=== PATIENT | male | born 1965 | race Caucasian/White ===

== ENCOUNTER 2016-12-07 13:02 | Inpatient (IN) | payer OTHER ==
--- NOTE | 2016-12-07 13:36 | EDPHY ---
H & P Time Seen by Provider: 12/07/16 13:35 HPI/ROS: Chief complaint. Fever HPI. 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 For the past 11 days he has fever, chest, body aches, chills. He has had vomiting but no diarrhea. He has a rash especially his chest. No recent travel or known exposures. He has had similar flare ups in the past. Chest pain is central chest without radiation. Slight shortness of breath and cough. No urinary symptoms. ROS Constitutional. Fever, chills, weakness Eyes. no problems with vision ENT. no sore throat, no nasal drainage Cardiovascular. Chest pain Respiratory. Shortness of breath and cough Abdominal. no abdominal pain, no nausea/vomiting, no diarrhea . no problems urinating MS. no calf pain/swelling, no neck/back pain, no joint pain Skin. Rash Lymph. no swollen glands Neuro. no headache, no dizziness, no difficulty walking or with speech Past Medical/Surgical History: Still's disease, hernia Social History: , nonsmoker, no alcohol Smoking Status: Never smoked Physical Exam: General Appearance: Alert well-developed male moderate distress vital signs show temp 39.4degrees, heart rate 116, blood pressure 147/86, pulse ox 96% on room air Eyes: Pupils equal and round no pallor or injection. ENT, Mouth: Mucous membranes are moist. Respiratory: There are no retractions, lungs are clear to auscultation. Cardiovascular: Regular rate and rhythm. Gastrointestinal: Abdomen is soft and nontender, no masses, bowel sounds normal. Neurological: Awake and alert, sensory and motor exams grossly normal. Skin: Fine erythematous rash that is macular to the anterior chest and ab Musculoskeletal: Neck is supple nontender. Extremities symmetrical, full range of motion. Psychiatric: Patient is oriented X 3, there is no agitation. Constitutional: Initial Vital Signs Temperature (C) 39.4 C H 12/07/16 13:11 Heart Rate 116 H 12/07/16 13:11 Respiratory Rate 20 12/07/16 13:11 Blood Pressure 147/86 H 12/07/16 13:11 O2 Sat (%) 96 12/07/16 13:11 O2 Delivery Mode Room Air Medical Decision Making - Diagnostics Imaging Results: Imaging Impressions Chest X-Ray 12/07/16 13:39 Impression: Diminished lung volumes with patchy bilateral lower lobe atelectasis versus pneumonia, left greater than right.. Chest x-ray interpreted by me as possible left lower lobe pneumonia Procedures: IV normal saline. Sepsis workup with blood cultures and lactate pending. Morphine for pain. ED Course/Re-evaluation: Patient is unable to sit up to let me listen to his lungs in the back Rocephin intravenously I consulted and discussed the case with Dr. Contreras, hospitalist, who agrees to the admission will see the patient in the ED Re-evaluation 3:40 p.m. patient is stable. The patient, his , and I discussed imaging and lab results. We discussed recommendation for admission and further evaluation. They expressed understanding and agreement translator interpreter is Jaden Differential Diagnosis: This could certainly be exacerbation of patient's Still's disease. I have considered pneumonia, sepsis, urinary tract infection, influenza as well - Data Points Laboratory Results: Laboratory Results 12/07/16 13:35 12/07/16 13:35 12/07/16 12/07/16 12/07/16 15:05 14:27 13:35 WBC RBC Hgb Hct MCV MCH MCHC RDW Plt Count MPV Neut % (Auto) Lymph % (Auto) Garvin % (Auto) Eos % (Auto) Baso % (Auto) Nucleat RBC Rel Count Absolute Neuts (auto) Absolute Lymphs (auto) Absolute Monos (auto) Absolute Eos (auto) Absolute Basos (auto) Absolute Nucleated RBC Immature Gran % Seg Neutrophils % Band Neutrophils % Lymphocytes % Monocytes % Immature Gran # Absolute Seg Neuts Absolute Band Neuts Absolute Lymphocytes Absolute Monocytes RBC/WBC/PLT Morphology Toxic Granulation Platelet Estimate ESR PT INR APTT VBG Lactic Acid 1.7 mmol/L mmol/L (0.7-2.1) Sodium 139 mEq/L mEq/L (134-144) Potassium 3.7 mEq/L mEq/L (3.5-5.2) Chloride 105 mEq/L mEq/L (97-110) Carbon Dioxide 22 mEq/l mEq/l (22-31) Anion Gap 12 mEq/L mEq/L (8-16) BUN 13 mg/dL mg/dL (7-23) Creatinine 0.8 mg/dL mg/dL (0.7-1.3) Estimated GFR > 60 Glucose 97 mg/dL mg/dL (70-100) Calcium 8.1 mg/dL L mg/dL (8.5-10.4) Ferritin Pending Total Bilirubin 0.6 mg/dL mg/dL (0.1-1.4) Conjugated Bilirubin 0.5 mg/dL mg/dL (0.0-0.5) Unconjugated Bilirubin 0.1 mg/dL mg/dL (0.0-1.1) AST 29 IU/L IU/L (17-59) ALT 46 IU/L IU/L (21-72) Alkaline Phosphatase 103 IU/L IU/L (38-126) Troponin I Pending C-Reactive Protein 170.5 mg/L H mg/L (<10.0) Total Protein 7.4 g/dL g/dL (6.3-8.2) Albumin 3.1 g/dL L g/dL (3.5-5.0) Lipase Pending Urine Color YELLOW Urine Appearance CLEAR Urine pH 5.0 (5.0-7.5) Ur Specific Sula 1.010 (1.002-1.030) Urine Protein NEGATIVE (NEGATIVE) Urine Ketones NEGATIVE (NEGATIVE) Urine Blood 1+ H (NEGATIVE) Urine Nitrate NEGATIVE (NEGATIVE) Urine Bilirubin NEGATIVE (NEGATIVE) Urine Urobilinogen NEGATIVE EU EU (0.2-1.0) Ur Leukocyte Esterase NEGATIVE (NEGATIVE) Urine RBC 1-3 /hpf /hpf (0-3) Urine WBC 1-3 /hpf /hpf (0-3) Ur Epithelial Cells NONE SEEN /lpf /lpf (NONE-1+) Urine Mucus TRACE /lpf /lpf (NONE-1+) Urine Glucose NEGATIVE (NEGATIVE) 12/07/16 12/07/16 12/07/16 13:35 13:35 13:35 WBC 29.85 10^3/uL H 10^3/uL (3.80-9.50) RBC 4.79 10^6/uL 10^6/uL (4.40-6.38) Hgb 14.0 g/dL g/dL (13.7-17.5) Hct 40.9 % % (40.0-51.0) MCV 85.4 fL fL (81.5-99.8) MCH 29.2 pg pg (27.9-34.1) MCHC 34.2 g/dL g/dL (32.4-36.7) RDW 12.4 % % (11.5-15.2) Plt Count 191 10^3/uL 10^3/uL (150-400) MPV 8.5 fL L fL (8.7-11.7) Neut % (Auto) Not Reported Lymph % (Auto) Not Reported Garvin % (Auto) Not Reported Eos % (Auto) Not Reported Baso % (Auto) Not Reported Nucleat RBC Rel Count 0.0 % % (0.0-0.2) Absolute Neuts (auto) Not Reported Absolute Lymphs (auto) Not Reported Absolute Monos (auto) Not Reported Absolute Eos (auto) Not Reported Absolute Basos (auto) Not Reported Absolute Nucleated RBC 0.00 10^3/uL 10^3/uL (0-0.01) Immature Gran % Not Reported Seg Neutrophils % 62 % % Band Neutrophils % 29 % % Lymphocytes % 7 % % Monocytes % 2 % % Immature Gran # Not Reported Absolute Seg Neuts 18.51 10^/uL H 10^/uL (1.70-6.50) Absolute Band Neuts 8.66 10^3/uL H 10^3/uL (0.00-0.70) Absolute Lymphocytes 2.09 10^3/uL 10^3/uL (1.00-3.00) Absolute Monocytes 0.60 10^3/uL 10^3/uL (0.30-0.80) RBC/WBC/PLT Morphology NORMAL (NORMAL) Toxic Granulation PRESENT H Platelet Estimate ADEQUATE (ADEQ) ESR 34 MM/HR H MM/HR (0-20) PT 15.5 SEC H SEC (12.0-15.0) INR 1.23 H (0.83-1.16) APTT 23.5 SEC SEC (23.0-38.0) VBG Lactic Acid 2.8 mmol/L H mmol/L (0.7-2.1) Sodium Potassium Chloride Carbon Dioxide Anion Gap BUN Creatinine Estimated GFR Glucose Calcium Ferritin Total Bilirubin Conjugated Bilirubin Unconjugated Bilirubin AST ALT Alkaline Phosphatase Troponin I C-Reactive Protein Total Protein Albumin Lipase Urine Color Urine Appearance Urine pH Ur Specific Sula Urine Protein Urine Ketones Urine Blood Urine Nitrate Urine Bilirubin Urine Urobilinogen Ur Leukocyte Esterase Urine RBC Urine WBC Ur Epithelial Cells Urine Mucus Urine Glucose Medications Given: Discontinued Medications Acetaminophen (Tylenol) 1,000 mg PO EDNOW ONE Stop: 05/15/17 13:40 Last Admin: 12/07/16 13:55 Dose: 1,000 mg Sodium Chloride (Ns) 1,000 mls @ 0 mls/hr IV ONCE ONE PRN Reason: Wide Open Stop: 12/07/16 13:40 Last Admin: 12/07/16 13:55 Dose: 1,000 mls Sodium Chloride (Ns) 1,000 mls @ 0 mls/hr IV ONCE ONE PRN Reason: Wide Open Stop: 12/07/16 13:40 Last Admin: 12/07/16 13:55 Dose: 1,000 mls Morphine Sulfate (Morphine) 6 mg IVP EDNOW ONE Stop: 12/07/16 14:21 Last Admin: 12/07/16 14:37 Dose: 6 mg Departure - Departure Disposition: [facility] Inpatient Acute Clinical Impression: Still's disease of adult Pneumonia Qualifiers: Pneumonia type: due to unspecified organism Laterality: left Lung location: lower lobe of lung Qualified Code(s): J18.1 - Lobar pneumonia, unspecified organism Condition: Fair Referrals: Demond Alejandra MD [Primary Care Provider] - As per Instructions Print Language: Mohawk
[2016-12-07] MEDS ORDERED: ACETAMINOPHEN 500 MG TAB PO ONE (13:39)
[2016-12-07] MEDS ORDERED: NS 1,000 ML IV ONE ×3 (13:39→16:18)
[2016-12-07 13:52] LABS: ADD DIFF? YES; ADD MORPH? NO; ADD SCAN? YES; ATYPICAL LYMPHOCYTE FLAG 40 (0-99); FRAGMENT RBC FLAG 0 (0-99); HEMATOCRIT 40.9 % (40.0-51.0); LEFT SHIFT FLG 120 (0-99); LIPEMIA HEMOLYSIS FLAG 90 (0-99); MEAN CELL HEMOGLOBIN 29.2 pg (27.9-34.1); MEAN CELL HEMOGLOBIN CONCENTR. 34.2 g/dL (32.4-36.7); MEAN CELL VOLUME 85.4 fL (81.5-99.8); MEAN PLATELET VOLUME 8.5 fL (8.7-11.7); PLATELET CLUMPS FLAG 10 (0-99); PLATELET COUNT 191 10^3/uL (150-400); RED BLOOD CELL COUNT 4.79 10^6/uL (4.40-6.38); RED CELL DISTRIBUTION WIDTH 12.4 % (11.5-15.2)
[2016-12-07 14:02] LABS: INR 1.23 (0.83-1.16); PROTIME(PATIENT) 15.5 SEC (12.0-15.0)
[2016-12-07 14:03] LABS: APTT 23.5 SEC (23.0-38.0)
[2016-12-07 14:18] LABS: SEDIMENTATION RATE 34 MM/HR (0-20)
[2016-12-07 14:20] LABS: ALANINE AMINOTRANSFERASE 46 IU/L (21-72); ALBUMIN 3.1 g/dL (3.5-5.0); ALKALINE PHOSPHATASE 103 IU/L (38-126); ANION GAP 12 mEq/L (8-16); ASPARTATE AMINOTRANSFERASE 29 IU/L (17-59); BILIRUBIN,TOTAL 0.6 mg/dL (0.1-1.4); BILIRUBIN-CONJUGATED 0.5 mg/dL (0.0-0.5); BILIRUBIN-UNCONJUGATED 0.1 mg/dL (0.0-1.1); CALCIUM 8.1 mg/dL (8.5-10.4); CARBON DIOXIDE 22 mEq/l (22-31); CHLORIDE 105 mEq/L (97-110); CREATININE 0.8 mg/dL (0.7-1.3); GLOMERULAR FILTRATION RATE > 60; GLUCOSE 97 mg/dL (70-100); POTASSIUM 3.7 mEq/L (3.5-5.2); SCAN NEGATIVE; SODIUM 139 mEq/L (134-144); TOTAL PROTEIN 7.4 g/dL (6.3-8.2)
[2016-12-07 14:27] LABS: PLATELET ESTIMATE ADEQUATE (ADEQ)
[2016-12-07 14:28] LABS: TOXIC GRANULATION PRESENT
[2016-12-07 14:46] LABS: LACGHOST ORDER
[2016-12-07 15:16] LABS: COLOR YELLOW; LEUKOCYTE ESTERASE,URINE NEGATIVE (NEGATIVE); NITRITE,URINE NEGATIVE (NEGATIVE)
[2016-12-07 15:20] LABS: MUCUS TRACE /lpf (NONE-1+)
[2016-12-07 15:29] LABS: C-REACTIVE PROTEIN 170.5 mg/L (<10.0)
--- NOTE | 2016-12-07 16:08 | CPEKG ---
Heart Rate: 105 RR Interval: 571 P-R Interval: 132 QRSD Interval: 80 QT Interval: 348 QTC Interval: 461 P Broadview: 52 QRS Broadview: -20 T Wave Broadview: 14 EKG Severity - OTHERWISE NORMAL ECG - EKG Impression: SINUS TACHYCARDIA EKG Impression: BORDERLINE LEFT AXIS DEVIATION Electronically Signed By: Karlos Mckeon 07-Dec-2016 17:15:57
[2016-12-07] MEDS ORDERED: ACETAMINOPHEN 325 MG TAB PO PRN (16:18)
[2016-12-07] MEDS ORDERED: ONDANSETRON DISINTEGRATING 4 MG TAB PO PRN (16:18)
[2016-12-07] MEDS ORDERED: ONDANSETRON 4 MG/2 ML VIAL IVP PRN (16:18)
[2016-12-07] MEDS ORDERED: ALBUTEROL 3 ML DEYVIAL IH PRN (16:18)
[2016-12-07 17:05] LABS: TROPONIN I < 0.012 ng/mL (0-0.034)
--- NOTE | 2016-12-07 18:35 | GHP ---
[f rep st] HISTORY AND PHYSICAL DATE OF ADMISSION: 12/07/2016 CHIEF COMPLAINT: Fever and shortness of breath. HISTORY OF PRESENT ILLNESS: A 51-year-old male with a history of Still's disease, who presents with complaints of 12 days of hip pain, discomfort, and difficulty walking with associated anorexia, lig htheadedness, and fever, followed by a new rash, which developed in the last 24 hours on his trunk a nd bilateral arms, and associated shortness of breath with cough productive of green sputum. The alf shepherd reports being diagnosed with Still's disease many years ago, and has been very symptom free si nce that time. The patient has been treated per his report with daily prednisone at 10 mg for many many years, and has had very few symptoms. The patient then reports acute symptoms as outlined abov e, beginning with fever, hip/joint pain, followed by rash, and shortness of breath. The patient reports severe lightheadedness and dizziness the day of presentation. Denies any vomiti ng, has had some nausea. Denies diarrhea, dysuria, vision changes, headache, or joint pains other t arreguin in his hip. SOCIAL HISTORY: The patient denies tobacco, or alcohol, or illicit drugs. FAMILY HISTORY: Negative for Still's disease. ADVANCED DIRECTIVES: The patient wishes to be full cor, full tube. REVIEW OF SYSTEMS: A 10-point review of systems is negative with the exception of that reported in the HPI. PHYSICAL EXAMINATION: VITAL SIGNS: Blood pressure 96/77, heart rate 116, respiratory rate 20, temp erature 39.4, satting 96% on room air. GENERAL: This is a middle-aged male in mild distress. HEEN T: Notable for dry mucous membranes. Eye exam is negative for any icterus. CARDIAC: The patient is tachycardic, but regular. PULMONARY: Clear to auscultation bilaterally. GASTROINTESTINAL: Pos itive bowel sounds. Mild tenderness to palpation diffusely. No rebound or guarding. MUSCULOSKELET AL: Negative for any lower extremity edema. SKIN: Notable for macular rash that is noted on the p atient's abdomen. It is fine, lacy, and additionally seen on both extremities. NEUROLOGIC: He is alert and oriented x3. PSYCHIATRIC: He is cooperative on interview and examination. DATA: White count is 29,000. Hematocrit is 40.9. Platelet count of 191. INR of 1.23. ESR of 34. Elevated ferritin at 2,380. C-reactive protein of 170. Lipase of 235. Urinalysis, which is eze gn. Chest x-ray, which I personally reviewed and interpreted, shows poor inspiration with a query of inf iltrates at bilateral lower lobes. ASSESSMENT AND PLAN: This is a 51-year-old male presenting with fever, rash, and shortness of breat h. 1. Sepsis. The patient is presenting febrile, tachycardic, presumed source would be pulmonary. Bl ood cultures have been drawn, and empiric treatment for community-acquired pneumonia has been initia nathan. We will additionally send influenza on sputum cultures. We will follow the patient's [employer] data closely. 2. Fever. It is possible this is secondary to an infectious source pulmonary based on his review. It is also possible this is related to his Still's disease. We will need the assistance of Rheumat ology to help. We will treat for both possible etiologies at this time with broad-spectrum antibiot ics, as well as IV steroids. It appears the patient has been seen at least for laboratories by Dr. Portillo in the past. His clinic is closed at the time the patient is being admitted. He is to be c alled in the morning to see if he would consider inpatient consultation. 3. Hypotension. The patient's systolic blood pressures have dropped from the 140s into the 90s, wo rried this has to do with his not taking prednisone today and when his body is used to daily dosing. Again, we will burst his steroids at this time, as well as fluid resuscitate with normal saline, a nd the follow the patient's hemodynamics closely item. 4. Acute leukocytosis. Again, could either be Still's or an infectious source. We will treat for both and follow closely. 5. Prophylaxis with Lovenox. DIET: Regular, if he can tolerate. DISPOSITION: Expecting greater than 2 midnights. The patient is presenting with sepsis physiology, and will need additional diagnostics and supportive care. I have discussed the case with the emerg ency room physician. The patient will be triaged to the medical-surgical floor for care. /[id number]/MODL
[2016-12-07] MEDS: methylPREDNISolone SOD SUCC 125 MG/2 ML VIAL IVP SCH (18:43)
[2016-12-08] MEDS: methylPREDNISolone SOD SUCC 125 MG/2 ML VIAL IVP SCH ×3 (00:22→12:19)
[2016-12-08 05:07] VITALS: TEMP 98.2
[2016-12-08 05:47] LABS: ANION GAP 10 mEq/L (8-16); CALCIUM 7.6 mg/dL (8.5-10.4); CARBON DIOXIDE 22 mEq/l (22-31); CHLORIDE 106 mEq/L (97-110); CREATININE 0.6 mg/dL (0.7-1.3); GLOMERULAR FILTRATION RATE > 60; GLUCOSE 218 mg/dL (70-100); POTASSIUM 4.2 mEq/L (3.5-5.2); SODIUM 138 mEq/L (134-144)
[2016-12-08 06:27] LABS: ADD DIFF? YES; ADD MORPH? NO; ADD SCAN? NO; ATYPICAL LYMPHOCYTE FLAG 30 (0-99); FRAGMENT RBC FLAG 0 (0-99); HEMATOCRIT 38.7 % (40.0-51.0); HEMOGLOBIN 13.1 g/dL (13.7-17.5); LEFT SHIFT FLG 40 (0-99); LIPEMIA HEMOLYSIS FLAG 90 (0-99); MEAN CELL HEMOGLOBIN 29.5 pg (27.9-34.1); MEAN CELL HEMOGLOBIN CONCENTR. 33.9 g/dL (32.4-36.7); MEAN CELL VOLUME 87.2 fL (81.5-99.8); MEAN PLATELET VOLUME 9.3 fL (8.7-11.7); PLATELET CLUMPS FLAG 0 (0-99); PLATELET COUNT 204 10^3/uL (150-400); RED BLOOD CELL COUNT 4.44 10^6/uL (4.40-6.38); RED CELL DISTRIBUTION WIDTH 12.2 % (11.5-15.2)
[2016-12-08 07:01] LABS: MICROCYTES 2+; PLATELET ESTIMATE ADEQUATE (ADEQ)
[2016-12-08] MEDS ORDERED: D50W 25 GM/50 ML SYR IVP PRN (07:50)
[2016-12-08] MEDS ORDERED: PNEUMOCOCCAL 0.5ML VACCINE VIAL IM ONE (08:13)
[2016-12-08] MEDS ORDERED: AZITHROMYCIN IV 500 MG in D5W 250 ML IV SCH (09:00)
[2016-12-08] MEDS ORDERED: ENOXAPARIN 40 MG/0.4 ML SYR SC SCH (09:00)
[2016-12-08] MEDS ORDERED: INSULIN REGULAR HUMAN 100 UNIT/ML SC SCH (11:30)
--- NOTE | 2016-12-08 11:32 | GDS ---
[f rep st] DISCHARGE SUMMARY DIAGNOSES: 1. Exacerbation of Still disease primarily affecting hips. 2. Elevated blood sugars, likely secondary to steroid. Needs close outpatient followup. 3. Cough, possible bronchitis. Will treat with Zithromax. HOSPITAL COURSE: The patient is a 51-year-old man with a history of Still disease. He was diagnose d in 1996, had a flare in 2008, and presenting very similarly to his presentation this time. He was started on IV steroids and overnight, his symptoms have completely resolved. Of note, he did have a cough with an abnormal chest x-ray on admission. I suspect this may be some atelectasis, but malini ot rule out bronchitis and will have him finish the course of Zithromax. He had elevated blood suga rs noted during his stay, likely secondary to the IV steroids. We will check a hemoglobin A1c which is pending at the time of dictation and have him follow up with Dr. Alejandra. We will give him blood glucose monitor and strips to take home with him to check his blood sugars at home and bring those to Dr. Alejandra's office. CONDITION ON DISCHARGE: Good. VITAL SIGNS: Stable. He has been afebrile overnight. Heart rate 66, blood pressure 131/78. He is 96% on room air. DISCHARGE MEDICATIONS: Please see discharge medication form. New meds will include test strips for blood sugar checking and prednisone taper from 30 mg every 10 days to 20 mg every 10 days back down to his usual 10 mg daily. FOLLOWUP INSTRUCTIONS: He should follow up with Dr. Demond Alejandra. I did talk with Dr. Portillo who recommended the above steroid taper and Dr. Alejandra can call Dr. Portillo with any further questions a s an outpatient regarding the patient. Total time spent patient on day of discharge is 35 minutes. /[id number]/MODL
[2016-12-08 12:43] VITALS: BP 122/72; PULSE 74; RESP 18; O2SAT 95
== END 2016-12-08 14:34 | disposition home or self-care (01) | DRG 547 ==
LOC: F3E 18:09
PROVIDERS: ADMIT Hospitalist; ATTEND Hospitalist
DX: M06.1 Adult-onset Still's disease (principal); R05 Cough; R73.09 Other abnormal glucose
CPT/HCPCS: 96365; G0009; J0456; J0696; J1650; J1815